=== PATIENT | male | born 1950 | race Hispanic/Latino ===

== ENCOUNTER → 2023-03-03 | Outpatient (CLI) | payer OTHER | END | disposition home or self-care (01) | LOC: OIH 08:31 | PROVIDERS: ATTEND Internal Medicine Cardiovascular Disease | DX: Z13.6 Encounter for screening for cardiovascular disorders (principal) | CPT/HCPCS: 75571 ==

== ENCOUNTER → 2023-03-03 | Outpatient (CLI) | payer OTHER | END | disposition home or self-care (01) | LOC: SHCH 08:24 | PROVIDERS: ATTEND Internal Medicine Cardiovascular Disease | DX: I08.0 Rheumatic disorders of both mitral and aortic valves (principal); I11.9 Hypertensive heart disease without heart failure; I73.9 Peripheral vascular disease, unspecified; E11.51 Type 2 diabetes mellitus with diabetic peripheral angiopathy without gangrene; E78.5 Hyperlipidemia, unspecified | CPT/HCPCS: 93306 ==

== ENCOUNTER → 2023-03-21 | Outpatient (CLI) | payer OTHER ==
[~2023-03-21] MED LIST: REGADENOSON 0.4 MG/5 ML PF SYG IVP ONE
== END | disposition home or self-care (01) ==
LOC: SHCH 08:13
PROVIDERS: ATTEND Internal Medicine Cardiovascular Disease
DX: R07.9 Chest pain, unspecified (principal); I10 Essential (primary) hypertension; E83.52 Hypercalcemia
CPT/HCPCS: 78452; 96374; 93017; J2785; A9500 ×2

== ENCOUNTER → 2024-07-18 | Outpatient (CLI) | payer OTHER ==
[~2024-07-18] MED LIST changes: +AMIO200T44 PO; +APIX5TAB PO; +ASPI-1443 PO; +ATEN50TA PO; +ATOR40TA71 PO; +CLIN-26 PO; +COLLAGEN PO; +EMPA1TAB7 PO; +FERS325 PO; +GLIM4TAB36 PO; +LISI20TA24 PO; +MG PO; +MVI PO; +PANT40TA54 PO; +PIOG45TA64 PO; +RANO500T6 PO; -REGADENOSON 0.4 MG/5 ML PF SYG IVP ONE; +TADA20TA72 PO
--- NOTE | 2024-07-18 13:55 | HMCIMG ---
US SOFT TISSUE GROIN REASON: M79.81. COMPARISON: None TECHNIQUE: Right groin ultrasound study was performed. FINDINGS: There appears to be soft tissue hematoma with complex septated structure in the right groin measuring 5.5 x 2.7 x 5.4 cm. Internal flow is seen. No definite pseudoaneurysm is seen. IMPRESSION: Findings suspicious for soft tissue hematoma in the right groin area.
== END | disposition home or self-care (01) ==
LOC: RAH 12:53
PROVIDERS: ATTEND Internal Medicine Cardiovascular Disease
DX: M79.81 Nontraumatic hematoma of soft tissue (principal)
CPT/HCPCS: 76882

== ENCOUNTER → 2024-09-17 | Outpatient (CLI) | payer OTHER | END | disposition home or self-care (01) | LOC: SHCH 09:32 | PROVIDERS: ATTEND Internal Medicine Cardiovascular Disease | DX: I25.10 Atherosclerotic heart disease of native coronary artery without angina pectoris (principal) | CPT/HCPCS: 93306 ==